=== PATIENT | male | born 1980 | race Asian ===

== ENCOUNTER 2017-09-05 14:05 | Outpatient (CLI) | payer OTHER | END 2017-09-05 19:52 | disposition home or self-care (01) | LOC: SUS 14:05 | DX: M79.661 Pain in right lower leg (principal) | CPT/HCPCS: 93922; 93971 ==

== ENCOUNTER 2021-01-14 21:53 | Inpatient (IN) | payer BC, OTHER ==
[~2021-01-14] VITALS: Ht 180.3 cm; Wt 96.6 kg
[2021-01-14 21:53] VITALS: BP_SYST 146
[2021-01-14] MEDS ORDERED: NACL 0.9% 1,000 ML IV ONE (22:30)
[2021-01-14] MEDS ORDERED: PIPERACILLIN/TAZO 3.375 GM in NS 50 ML IV ONE (22:30)
[2021-01-14 22:59] LABS: BASOPHILS # (AUTO) 0.2 K/uL (0.0-0.2); BASOPHILS % (AUTO) 0.8 % (0.0-2.0); EOSINOPHILS # (AUTO) 0.2 K/uL (0.0-0.4); EOSINOPHILS % (AUTO) 1.1 % (0.0-4.0); HEMATOCRIT 36.1 % (36-54); HEMOGLOBIN 13.7 g/dL (14.0-18.0); LYMPHOCYTES # (AUTO) 1.7 K/uL (1.0-5.5); LYMPHOCYTES % (AUTO) 7.9 % (20.5-51.5); MEAN CORPUSCULAR HEMOGLOBIN 30 pg (27-31); MEAN CORPUSCULAR HGB CONC 38 % (32-36); MEAN CORPUSCULAR VOLUME 80 fL (79.0-98.0); MONOCYTES # (AUTO) 1.2 K/uL (0.0-1.0); MONOCYTES % (AUTO) 5.6 % (1.7-9.3); NEUTROPHILS # (AUTO) 18.5 K/uL (1.8-7.7); NEUTROPHILS % (AUTO) 84.6 % (40.0-70.0); PLATELET COUNT (AUTO) 285 K/uL (130-430); RED CELL DISTRIBUTION WIDTH 13.6 % (9.0-15.0); WHITE BLOOD COUNT (AUTO) 21.8 K/uL (4.8-10.8)
[2021-01-14] MEDS ORDERED: PIPERACILLIN/TAZOBACTAM 3.375 GM/VIAL (ZOSYN) IV ONE (23:01)
[2021-01-14 23:54] LABS: CALCIUM 8.9 mg/dL (8.4-11.0); POTASSIUM 4.3 mmol/L (3.5-5.1)
[2021-01-15] LABS: ALBUMIN 3.7 g/dL (3.4-4.8); TOTAL BILIRUBIN 0.9 mg/dL (0.0-1.0)
[2021-01-15 00:01] LABS: PROTHROMBIN TIME 10.4 SECS (9.5-12.5)
[2021-01-15 00:49] LABS: BILIRUBIN,URINE NEGATIVE (NEGATIVE); BLOOD, URINE 1+ (NEGATIVE); CLARITY/URINE CLEAR (CLEAR); COLOR,URINE YELLOW (YELLOW); GLUCOSE,URINE 3+ (NEGATIVE); KETONES,URINE 3+ (NEGATIVE); LEUKOCYTE ESTERASE ,URINE NEGATIVE (NEGATIVE); NITRITE, URINE NEGATIVE (NEGATIVE); PH,URINE 6.5 (5.0-8.0); PROTEIN URINE 2+ (NEGATIVE); UROBILINOGEN,URINE 0.2 (0.2-1.0)
[2021-01-15 00:52] LABS: BACTERIA,URINE FEW /HPF (None Seen); WBC,URINE 0-3 /HPF (0-3)
[2021-01-15] MEDS ORDERED: KCL 20 mEq in D5/0.45NS 1000mL 1,000 ML IV SCH ×2 (01:30→10:30)
[2021-01-15] MEDS ORDERED: ONDANSETRON HCL 4 MG/2 ML VIAL IVP PRN (01:30)
[2021-01-15] MEDS ORDERED: MONT10TA33 PO (01:48)
[2021-01-15 02:12] VITALS: BP_SYST 145
[2021-01-15] MEDS: HYDROmorphone 1 MG/ML INJ. CARTRIDGE IVP PRN ×2 (02:36→22:33)
[2021-01-15] MEDS ORDERED: KCL 20 mEq in D5/0.45NS 1000mL 1,000 ML IV ONE (03:11)
[2021-01-15 07:53] VITALS: BP_SYST 117
[2021-01-15] MEDS: PANTOPRAZOLE SODIUM 40 MG/VIAL (PROTONIX) IVP SCH ×2 (08:28→21:57)
[2021-01-15] MEDS ORDERED: LevALBUTEROL HCL 1.25 MG/0.5 ML *CONC.* VIAL.NEB (XOPENEX CONC.) INH PRN (08:30)
[2021-01-15 08:55] VITALS: BP_SYST 117
[2021-01-15] MEDS: INSULIN REGULAR, HUMAN 100 UNITS/ML, 10 ML VIAL (humuLIN R) SUBCUT PRN ×3 (11:38→22:34)
[2021-01-15] MEDS: cefTRIAXone 1 GM in D5W 50 ML IV SCH (11:39)
[2021-01-15] MEDS: KCL 20 mEq in NS 1000 mL 1,000 ML IV SCH ×2 (11:39→22:29)
[2021-01-15 12:36] VITALS: BP_SYST 128
[2021-01-15] MEDS: LevALBUTEROL HCL 1.25 MG/0.5 ML *CONC.* VIAL.NEB (XOPENEX CONC.) INH SCH ×2 (14:10→19:30)
[2021-01-15 17:20] VITALS: BP_SYST 131
[2021-01-15 20:30] VITALS: BP_SYST 122
[2021-01-15] MEDS: ENOXAPARIN SODIUM 40 MG/0.4 ML SYRINGE SUBCUT SCH (22:05)
[2021-01-16] MEDS: LevALBUTEROL HCL 1.25 MG/0.5 ML *CONC.* VIAL.NEB (XOPENEX CONC.) INH SCH ×4 (01:00→19:30)
[2021-01-16 06:00] VITALS: BP_SYST 108; BP_SYST 133
[2021-01-16 06:22] LABS: BASOPHILS # (AUTO) 0.1 K/uL (0.0-0.2); BASOPHILS % (AUTO) 0.5 % (0.0-2.0); EOSINOPHILS # (AUTO) 0.5 K/uL (0.0-0.4); EOSINOPHILS % (AUTO) 3.1 % (0.0-4.0); HEMATOCRIT 34.7 % (36-54); HEMOGLOBIN 11.7 g/dL (14.0-18.0); LYMPHOCYTES # (AUTO) 1.5 K/uL (1.0-5.5); LYMPHOCYTES % (AUTO) 9.9 % (20.5-51.5); MEAN CORPUSCULAR HEMOGLOBIN 28 pg (27-31); MEAN CORPUSCULAR HGB CONC 34 % (32-36); MEAN CORPUSCULAR VOLUME 82 fL (79.0-98.0); MONOCYTES # (AUTO) 0.8 K/uL (0.0-1.0); MONOCYTES % (AUTO) 5.1 % (1.7-9.3); NEUTROPHILS # (AUTO) 12.3 K/uL (1.8-7.7); NEUTROPHILS % (AUTO) 81.4 % (40.0-70.0); PLATELET COUNT (AUTO) 217 K/uL (130-430); RED BLOOD CELL COUNT(AUTO) 4.21 MIL/uL (4.2-6.2); RED CELL DISTRIBUTION WIDTH 14.2 % (9.0-15.0); WHITE BLOOD COUNT (AUTO) 15.1 K/uL (4.8-10.8)
[2021-01-16] MEDS: INSULIN REGULAR, HUMAN 100 UNITS/ML, 10 ML VIAL (humuLIN R) SUBCUT PRN ×3 (06:30→17:27)
[2021-01-16 06:50] LABS: CALCIUM 8.3 mg/dL (8.4-11.0); CREATININE 1.02 mg/dL (0.55-1.30); POTASSIUM 4.2 mmol/L (3.5-5.1)
[2021-01-16 07:47] VITALS: BP_SYST 124
[2021-01-16] MEDS: PANTOPRAZOLE SODIUM 40 MG/VIAL (PROTONIX) IVP SCH ×2 (08:27→21:10)
[2021-01-16] MEDS: KCL 20 mEq in NS 1000 mL 1,000 ML IV SCH ×2 (08:27→21:11)
[2021-01-16 11:22] VITALS: BP_SYST 120
[2021-01-16] MEDS: cefTRIAXone 1 GM in D5W 50 ML IV SCH (11:30)
[2021-01-16 15:24] VITALS: BP_SYST 107
[2021-01-16 20:00] VITALS: BP_SYST 121
[2021-01-16] MEDS: ENOXAPARIN SODIUM 40 MG/0.4 ML SYRINGE SUBCUT SCH (21:14)
[2021-01-17] VITALS: BP_SYST 126
[2021-01-17] MEDS: HYDROmorphone 1 MG/ML INJ. CARTRIDGE IVP PRN (00:37)
[2021-01-17] MEDS: LevALBUTEROL HCL 1.25 MG/0.5 ML *CONC.* VIAL.NEB (XOPENEX CONC.) INH SCH ×3 (01:00→13:00)
[2021-01-17] MEDS: KCL 20 mEq in NS 1000 mL 1,000 ML IV SCH ×2 (06:20→13:30)
[2021-01-17] MEDS: INSULIN REGULAR, HUMAN 100 UNITS/ML, 10 ML VIAL (humuLIN R) SUBCUT PRN ×2 (06:25→11:38)
[2021-01-17 06:43] LABS: BASOPHILS # (AUTO) 0.1 K/uL (0.0-0.2); BASOPHILS % (AUTO) 0.8 % (0.0-2.0); EOSINOPHILS # (AUTO) 0.5 K/uL (0.0-0.4); EOSINOPHILS % (AUTO) 5.9 % (0.0-4.0); HEMATOCRIT 33.1 % (36-54); HEMOGLOBIN 11.1 g/dL (14.0-18.0); LYMPHOCYTES % (AUTO) 22.7 % (20.5-51.5); MEAN CORPUSCULAR HEMOGLOBIN 28 pg (27-31); MEAN CORPUSCULAR HGB CONC 33 % (32-36); MEAN CORPUSCULAR VOLUME 83 fL (79.0-98.0); MONOCYTES # (AUTO) 0.4 K/uL (0.0-1.0); NEUTROPHILS # (AUTO) 5.8 K/uL (1.8-7.7); NEUTROPHILS % (AUTO) 65.6 % (40.0-70.0); PLATELET COUNT (AUTO) 232 K/uL (130-430); RED BLOOD CELL COUNT(AUTO) 3.99 MIL/uL (4.2-6.2); RED CELL DISTRIBUTION WIDTH 14.2 % (9.0-15.0); WHITE BLOOD COUNT (AUTO) 8.8 K/uL (4.8-10.8)
[2021-01-17 06:52] LABS: CALCIUM 8.3 mg/dL (8.4-11.0); CREATININE 1.03 mg/dL (0.55-1.30); POTASSIUM 4.1 mmol/L (3.5-5.1)
[2021-01-17] MEDS: PANTOPRAZOLE SODIUM 40 MG/VIAL (PROTONIX) IVP SCH (08:41)
[2021-01-17 10:48] VITALS: BP_SYST 133
[2021-01-17] MEDS: cefTRIAXone 1 GM in D5W 50 ML IV SCH (11:45)
[2021-01-17 15:32] VITALS: BP_SYST 130
[2021-01-17 16:01] VITALS: BP_SYST 130
== END 2021-01-17 16:25 | disposition home or self-care (01) | DRG 440 ==
LOC: SED 21:53 → SMU 01-15 01:25
PROVIDERS: ADMIT Family Medicine; ATTEND Family Medicine
DX: K85.90 Acute pancreatitis without necrosis or infection, unspecified (principal); E78.5 Hyperlipidemia, unspecified; R73.9 Hyperglycemia, unspecified; D72.829 Elevated white blood cell count, unspecified; J45.909 Unspecified asthma, uncomplicated; Z20.822 Contact with and (suspected) exposure to COVID-19
CPT/HCPCS: 36415; 76376; 76700-TC; 80048; 80053; 80061; 81000; 82150; 82962; 83036; 83605; 83690; 83735; 85025; 85610-TC; 87040-TC; 93005; 94640; 94760; 96365; 99285; C9113; J0696; J1170; J1650; J1815; J2543; J3480; J7060; J7612

== ENCOUNTER 2022-05-28 15:48 | Inpatient (IN) | payer BC ==
[~2022-05-28] VITALS: Ht 180.3 cm; Wt 101.2 kg
[~2022-05-28 15:48] MED LIST: MONT-40 PO
[2022-05-28 15:50] VITALS: BP_SYST 119
--- NOTE | 2022-05-28 15:55 | NUR ---
BROUGHT BACK TO BED #6 VIA WHEELCHAIR AND PLACED IN BED, REPORT GIVEN TO ALYSSA
[2022-05-28] MEDS ORDERED: ONDANSETRON 4 MG ODT TAB PO ONE (16:00)
[2022-05-28] MEDS ORDERED: KETOROLAC TROMETHAMINE 60 MG/2 ML VIAL IM ONE (16:00)
--- NOTE | 2022-05-28 16:22 | NUR ---
PT WAS ADMITED WITH TORADOL AND ZOFRAN FOR ABDOMINAL PAIN WITH N/V.
--- NOTE | 2022-05-28 16:25 | NUR ---
TAKEN TO RADIOLOGY VIA JANUARY
--- NOTE | 2022-05-28 16:31 | NUR ---
URINE COLLECTED AND SENT TO LAB.
[2022-05-28 16:43] LABS: BILIRUBIN,URINE NEGATIVE (NEGATIVE); CLARITY/URINE CLEAR (CLEAR); COLOR,URINE YELLOW (YELLOW); GLUCOSE,URINE 3+ (NEGATIVE); KETONES,URINE 2+ (NEGATIVE); LEUKOCYTE ESTERASE ,URINE NEGATIVE (NEGATIVE); NITRITE, URINE NEGATIVE (NEGATIVE); PROTEIN URINE 1+ (NEGATIVE); UROBILINOGEN,URINE 0.2 (0.2-1.0)
[2022-05-28 17:04] LABS: BLOOD, URINE TRACE (NEGATIVE)
[2022-05-28 17:04] LABS: BASOPHILS # (AUTO) 0.1 K/uL (0.0-0.2); BASOPHILS % (AUTO) 0.5 % (0.0-2.0); EOSINOPHILS # (AUTO) 0.1 K/uL (0.0-0.4); EOSINOPHILS % (AUTO) 0.8 % (0.0-4.0); HEMOGLOBIN 14.4 g/dL (14.0-18.0); LYMPHOCYTES # (AUTO) 1.2 K/uL (1.0-5.5); LYMPHOCYTES % (AUTO) 8.4 % (20.5-51.5); MEAN CORPUSCULAR HEMOGLOBIN 27 pg (27-31); MEAN CORPUSCULAR HGB CONC 34 % (32-36); MEAN CORPUSCULAR VOLUME 81 fL (79.0-98.0); MONOCYTES # (AUTO) 0.3 K/uL (0.0-1.0); MONOCYTES % (AUTO) 2.1 % (1.7-9.3); NEUTROPHILS # (AUTO) 12.4 K/uL (1.8-7.7); NEUTROPHILS % (AUTO) 88.2 % (40.0-70.0); PLATELET COUNT (AUTO) 360 K/uL (130-430); RED BLOOD CELL COUNT(AUTO) 5.33 MIL/uL (4.2-6.2); RED CELL DISTRIBUTION WIDTH 14.8 % (9.0-15.0); WHITE BLOOD COUNT (AUTO) 14.1 K/uL (4.8-10.8)
[2022-05-28 17:34] LABS: BACTERIA,URINE None Seen /HPF (None Seen); WBC,URINE 0-3 /HPF (0-3)
[2022-05-28 17:35] LABS: MUCUS,URINE None Seen /LPF (None Seen)
[2022-05-28 17:51] LABS: ANION GAP 13 (5-15); CHLORIDE 93 mmol/L (98-107); GLUCOSE 483 mg/dL (70-99); POTASSIUM 4.2 mmol/L (3.5-5.1)
[2022-05-28 18:12] LABS: UREA NITROGEN, BLOOD 17 mg/dL (8-21)
[2022-05-28 18:13] LABS: CREATININE 1.45 mg/dL (0.55-1.30); GFR AFRICAN AMERICAN 68 mL/min (>90); TOTAL BILIRUBIN 1.1 mg/dL (0.0-1.0)
[2022-05-28 18:14] LABS: ALANINE AMINOTRANSFERASE 56 U/L (12-78); ALBUMIN 3.5 g/dL (3.4-4.8); ASPARTATE AMINOTRANSFERASE 62 U/L (10-37); C-REACTIVE PROTEIN QUANT < 0.2 mg/dL (0-0.5)
[2022-05-28 18:16] LABS: CALCIUM 6.9 mg/dL (8.4-11.0); LIPASE 4721 U/L (73-393)
[2022-05-28 18:17] LABS: LACTATE DEHYDROGENASE 431 U/L (85-227)
--- NOTE | 2022-05-28 18:27 | NUR ---
Admit bed requested Patient will be admitted to care of . Admitted to TELEMETRY unit. Diagnosis: ACUTE PACREATITIS Inpatient (Yes) Observation ( No) Orientation concerns or request close to nursing station ( No) Covid Status NEGATIVE On vent or bipap NO Isolation requirements STANDARD Needs a sitter NO From Home (Yes ) Requires Dialysis (No) Med Rec Completed (Yes)
[2022-05-28] MEDS ORDERED: NACL 0.9% 1,000 ML IV ONE (18:30)
[2022-05-28] MEDS ORDERED: INSULIN REGULAR, HUMAN 10 UNITS/0.1 ML, 3 ML VIAL IVP ONE (18:30)
[2022-05-28] MEDS ORDERED: NACL 0.9% 2,000 ML IV ONE (18:30)
[2022-05-28 18:38] LABS: ACETONE, SERUM TRACE (NEGATIVE)
[2022-05-28] MEDS ORDERED: MORPHINE 2 MG/ML INJ. SYRINGE IVP ONE (18:45)
[2022-05-28 19:16] LABS: AMYLASE 697 U/L (0-100)
[2022-05-28] MEDS ORDERED: DEXTROSE 50% JECT 50 ML DISP.SYRIN IVP PRN (19:30)
[2022-05-28] MEDS ORDERED: NALOXONE HCL 0.4 MG/ML AMP (NARCAN) IVP PRN ×2 (19:30)
[2022-05-28] MEDS ORDERED: NACL 0.9% 1,000 ML IV SCH (19:30)
[2022-05-28] MEDS ORDERED: MORPHINE 4 MG INJ. 4 MG/ML VIAL IVP PRN (19:45)
[2022-05-28] MEDS ORDERED: cefTRIAXone 1 GM VIAL ONE (20:54)
[2022-05-28] MEDS: cefTRIAXone 1 GM in D5W 50 ML IV SCH (20:57)
[2022-05-28] MEDS ORDERED: cefTRIAXone 1 GM IVPB PREMIX 50 ML IV ONE (20:59)
[2022-05-28 21:25] LABS: CHOLESTEROL 204 mg/dL (<200); TRIGLYCERIDES 1935 mg/dL (30-150)
[2022-05-28 21:26] LABS: HDL CHOLESTEROL 51 mg/dL (>45); LDL CHOLESTEROL 45 mg/dL (<100)
--- NOTE | 2022-05-28 21:30 | NUR ---
pt.received via the er-dept.pt.presents admit dx;pancreatitis.pt. c/o pain,absent nausea.pt.received w iv fluids/abx;rocephin infusing.v/s assessed values wnl.pt.presents general status stable.respiratory status stable;un-labored@room air.call light/ telephone placed w/in access of the pt. Addendum: 05/29/22 at 0149 by Jorje Ford RN account receivable associate placement verification per protocol.
[2022-05-28 21:45] VITALS: BP_SYST 110
[2022-05-28] MEDS: HYDROmorphone 1 MG/ML INJ. CARTRIDGE IVP PRN (21:57)
--- NOTE | 2022-05-28 22:20 | NUR ---
CONSULTATION CALLED FOR DR. OAKLEY FOR CONSULT OF ACUTE PANCREATITIS ORDER BY DR. CARTER SPOKE WITH DEEPTI
--- NOTE | 2022-05-28 22:49 | NUR ---
PAGED DOCTOR EMMA
--- NOTE | 2022-05-28 23:10 | NUR ---
Dr. Browne paged, new orders provided Dr Browne was paged and notified about pt's low calcium 6.9, pt's request for sleep aid, and clarification of a morphine PRN order. -Tums 1000 mg PO QID was ordered -Restoril 30 mg PO QHS PRN ordered for sleep -Morphine order cancelled Dr. Browne returned call at [phone]
--- NOTE | 2022-05-28 23:10 | NUR ---
ADMIT NOTE Patient arrived to [facility] unit bed 118A at 2130 from ER with a diagnosis of RECCURENT PANCREATITIS. Admission process initiated by ROD Recinos and ROD madison provide care remainder of shift. Patient oriented to pain management, safety and call light-teach back done. Patient has been moved to bed 124B
[2022-05-28] MEDS ORDERED: CALCIUM CARBONATE 500 MG/ TAB.CHEW PO SCH (23:30)
[2022-05-29] MEDS: HYDROmorphone 1 MG/ML INJ. CARTRIDGE IVP PRN ×5 (04:29→23:27)
[2022-05-29] MEDS: INSULIN REGULAR, HUMAN 100 UNITS/ML, 3 ML VIAL (humuLIN R) SUBCUT PRN ×3 (05:02→21:58)
[2022-05-29] MEDS: CALCIUM CARBONATE 500 MG/ TAB.CHEW PO SCH ×5 (05:19→21:50)
[2022-05-29] MEDS: ACETAMINOPHEN 325 MG TABLET PO PRN ×2 (05:42→17:06)
--- NOTE | 2022-05-29 07:15 | NUR ---
receive the patient form the car shifter rn in a stable condition with admitting diagnosis aox4 .no sign and symptoms of respiratory distress . no complain of pain at this time . will continue to monitor .
[2022-05-29 07:49] LABS: ALBUMIN 2.6 g/dL (3.4-4.8); CREATININE 1.06 mg/dL (0.55-1.30); PHOSPHORUS 2.1 mg/dL (2.7-4.5); POTASSIUM 4.6 mmol/L (3.5-5.1); TOTAL BILIRUBIN 0.9 mg/dL (0.0-1.0)
[2022-05-29 07:59] LABS: BASOPHILS # (AUTO) 0.1 K/uL (0.0-0.2); BASOPHILS % (AUTO) 0.6 % (0.0-2.0); EOSINOPHILS # (AUTO) 0.6 K/uL (0.0-0.4); EOSINOPHILS % (AUTO) 4.6 % (0.0-4.0); HEMATOCRIT 36.3 % (36-54); LYMPHOCYTES # (AUTO) 1.5 K/uL (1.0-5.5); LYMPHOCYTES % (AUTO) 11.8 % (20.5-51.5); MEAN CORPUSCULAR HEMOGLOBIN 29 pg (27-31); MEAN CORPUSCULAR HGB CONC 36 % (32-36); MEAN CORPUSCULAR VOLUME 80 fL (79.0-98.0); MONOCYTES # (AUTO) 0.4 K/uL (0.0-1.0); MONOCYTES % (AUTO) 2.8 % (1.7-9.3); NEUTROPHILS # (AUTO) 10.3 K/uL (1.8-7.7); NEUTROPHILS % (AUTO) 80.2 % (40.0-70.0); PLATELET COUNT (AUTO) 279 K/uL (130-430); RED BLOOD CELL COUNT(AUTO) 4.53 MIL/uL (4.2-6.2); RED CELL DISTRIBUTION WIDTH 14.7 % (9.0-15.0); WHITE BLOOD COUNT (AUTO) 12.9 K/uL (4.8-10.8)
[2022-05-29 08:53] LABS: CALCIUM 5.4 mg/dL (8.4-11.0)
--- NOTE | 2022-05-29 11:00 | NUR ---
patient was made NPO for ultrasound of the abdomen/pelvis . patient tolerated the procedure
[2022-05-29] MEDS: LR 1,000 ML IV SCH ×3 (14:58→22:07)
[2022-05-29] MEDS: cefTRIAXone 1 GM in D5W 50 ML IV SCH (17:03)
[2022-05-29] MEDS ORDERED: NAPH,MB-DB/K PH,MBDB 250 MG TAB PO ONE (18:30)
--- NOTE | 2022-05-29 18:37 | NUR ---
will endorese to operation shift supervisor rn for continuity of care
[2022-05-29] MEDS ORDERED: FENOFIBRATE 160 MG TABLET PO ONE (19:00)
[2022-05-29 20:00] VITALS: BP_SYST 112
[2022-05-29] MEDS ORDERED: CALCIUM CHLORIDE 1 GM in NS 100 ML IV ONE (20:00)
[2022-05-29] MEDS: NAPH,MB-DB/K PH,MBDB 250 MG TAB PO SCH (21:50)
[2022-05-30] MEDS ORDERED: CALCIUM CHLORIDE 1 GM/10ML VIAL (13.6 mEq Ca++/VIAL) ONE (01:34)
[2022-05-30] MEDS: HYDROmorphone 1 MG/ML INJ. CARTRIDGE IVP PRN ×4 (05:01→17:46)
[2022-05-30] MEDS: LR 1,000 ML IV SCH ×4 (05:01→20:06)
[2022-05-30] MEDS: INSULIN REGULAR, HUMAN 100 UNITS/ML, 3 ML VIAL (humuLIN R) SUBCUT PRN ×4 (05:21→20:36)
[2022-05-30 06:41] LABS: BASOPHILS % (AUTO) 0.4 % (0.0-2.0); EOSINOPHILS # (AUTO) 0.6 K/uL (0.0-0.4); EOSINOPHILS % (AUTO) 5.3 % (0.0-4.0); HEMATOCRIT 33.1 % (36-54); HEMOGLOBIN 11.3 g/dL (14.0-18.0); LYMPHOCYTES # (AUTO) 0.9 K/uL (1.0-5.5); LYMPHOCYTES % (AUTO) 8.5 % (20.5-51.5); MEAN CORPUSCULAR HEMOGLOBIN 27 pg (27-31); MEAN CORPUSCULAR HGB CONC 34 % (32-36); MEAN CORPUSCULAR VOLUME 80 fL (79.0-98.0); MONOCYTES # (AUTO) 0.3 K/uL (0.0-1.0); MONOCYTES % (AUTO) 3.1 % (1.7-9.3); NEUTROPHILS # (AUTO) 9.2 K/uL (1.8-7.7); NEUTROPHILS % (AUTO) 82.7 % (40.0-70.0); PLATELET COUNT (AUTO) 191 K/uL (130-430); RED BLOOD CELL COUNT(AUTO) 4.15 MIL/uL (4.2-6.2); RED CELL DISTRIBUTION WIDTH 14.8 % (9.0-15.0); WHITE BLOOD COUNT (AUTO) 11.1 K/uL (4.8-10.8)
[2022-05-30 07:00] LABS: ALBUMIN 2.1 g/dL (3.4-4.8); CREATININE 1.18 mg/dL (0.55-1.30); POTASSIUM 3.6 mmol/L (3.5-5.1); TOTAL BILIRUBIN 0.6 mg/dL (0.0-1.0)
--- NOTE | 2022-05-30 07:23 | NUR ---
receive the patient from the police shift commander rn in a stable condition with admitting diagnosis of pancreatitis . no complain of pain at this time . no sign and symptoms of respiratory distress . will continue to monitor
[2022-05-30 08:01] LABS: CALCIUM 6.7 mg/dL (8.4-11.0)
[2022-05-30] MEDS: NAPH,MB-DB/K PH,MBDB 250 MG TAB PO SCH ×4 (09:49→20:12)
[2022-05-30] MEDS: CALCIUM CARBONATE 500 MG/ TAB.CHEW PO SCH ×4 (09:49→20:12)
[2022-05-30] MEDS: OMEGA-3/DHA/EPA/FISH OIL 1 GM CAPSULE PO SCH (09:49)
[2022-05-30] MEDS: FENOFIBRATE 160 MG TABLET PO SCH (09:49)
--- NOTE | 2022-05-30 15:40 | NUR ---
the manager of merchandising made rounds with patient . order lantus for the patient . noted and carried out
[2022-05-30 16:13] VITALS: BP_SYST 127
[2022-05-30] MEDS: cefTRIAXone 1 GM in D5W 50 ML IV SCH (17:29)
[2022-05-30] MEDS: ACETAMINOPHEN 325 MG TABLET PO PRN (17:35)
--- NOTE | 2022-05-30 19:24 | NUR ---
leonardo to lance rn for continuity of care .
--- NOTE | 2022-05-30 19:50 | NUR ---
made patient teaching regarding how to check the blood sugar with use of glucometer. return demo was done
[2022-05-30 20:00] VITALS: BP_SYST 129
--- NOTE | 2022-05-30 20:00 | NUR ---
Education Diabetes teaching medication , compliant with proper diet , regular check up , do's and dont, verbalized understanding.
[2022-05-30] MEDS: INSULIN GLARGINE 100 UNITS/ML, 10 ML VIAL SUBCUT SCH (20:37)
--- NOTE | 2022-05-30 21:31 | NUR ---
Endorsed patient to Estella the registry/RN for continuity of care.
[2022-05-30] MEDS: DIPHENHYDRAMINE INJ 50 MG/ML VIAL IVP PRN (21:53)
[2022-05-31] VITALS: BP_SYST 134
[2022-05-31] MEDS: LR 1,000 ML IV SCH ×5 (01:02→20:16)
[2022-05-31] MEDS: HYDROmorphone 1 MG/ML INJ. CARTRIDGE IVP PRN ×5 (01:58→20:01)
[2022-05-31] MEDS: ACETAMINOPHEN 325 MG TABLET PO PRN (05:06)
[2022-05-31 07:23] LABS: BASOPHILS % (AUTO) 0.4 % (0.0-2.0); EOSINOPHILS # (AUTO) 0.7 K/uL (0.0-0.4); HEMATOCRIT 29.2 % (36-54); HEMOGLOBIN 10.1 g/dL (14.0-18.0); LYMPHOCYTES # (AUTO) 1.1 K/uL (1.0-5.5); LYMPHOCYTES % (AUTO) 11.3 % (20.5-51.5); MEAN CORPUSCULAR HEMOGLOBIN 28 pg (27-31); MEAN CORPUSCULAR HGB CONC 35 % (32-36); MEAN CORPUSCULAR VOLUME 80 fL (79.0-98.0); MONOCYTES # (AUTO) 0.4 K/uL (0.0-1.0); MONOCYTES % (AUTO) 4.5 % (1.7-9.3); NEUTROPHILS # (AUTO) 7.4 K/uL (1.8-7.7); NEUTROPHILS % (AUTO) 76.8 % (40.0-70.0); PLATELET COUNT (AUTO) 230 K/uL (130-430); RED BLOOD CELL COUNT(AUTO) 3.65 MIL/uL (4.2-6.2); RED CELL DISTRIBUTION WIDTH 14.7 % (9.0-15.0); WHITE BLOOD COUNT (AUTO) 9.7 K/uL (4.8-10.8)
--- NOTE | 2022-05-31 07:24 | NUR ---
receive the patient from the rn shift mgr rn in a stable condition with admitting diagnosis of pancreatitis , aox4 , no complain of pain , no sign and symptoms respiratory distress . will continue to monitor
[2022-05-31 08:05] LABS: ALBUMIN 2.1 g/dL (3.4-4.8); CALCIUM 8.1 mg/dL (8.4-11.0); CREATININE 1.24 mg/dL (0.55-1.30); PHOSPHORUS 2.2 mg/dL (2.7-4.5); POTASSIUM 3.1 mmol/L (3.5-5.1); TOTAL BILIRUBIN 0.5 mg/dL (0.0-1.0)
[2022-05-31] MEDS: FENOFIBRATE 160 MG TABLET PO SCH (08:42)
[2022-05-31] MEDS: NAPH,MB-DB/K PH,MBDB 250 MG TAB PO SCH ×4 (08:42→20:16)
[2022-05-31] MEDS: CALCIUM CARBONATE 500 MG/ TAB.CHEW PO SCH ×3 (08:43→17:33)
[2022-05-31] MEDS: OMEGA-3/DHA/EPA/FISH OIL 1 GM CAPSULE PO SCH (08:43)
[2022-05-31] MEDS: INSULIN REGULAR, HUMAN 100 UNITS/ML, 3 ML VIAL (humuLIN R) SUBCUT PRN ×3 (11:34→20:25)
--- NOTE | 2022-05-31 16:40 | NUR ---
md albarran made some rounds . repalce the potassium . made some patient teaching re: blood sugar monitoring using the glucometer , insulin administration .
[2022-05-31] MEDS ORDERED: POTASSIUM CHLORIDE 20 MEQ TAB.PRT.SR PO ONE (16:45)
[2022-05-31] MEDS: cefTRIAXone 1 GM in D5W 50 ML IV SCH (17:37)
[2022-05-31 19:00] VITALS: BP_SYST 132
--- NOTE | 2022-05-31 19:20 | NUR ---
will endorse to geek squad manager rn for continuity of care
[2022-05-31 20:00] VITALS: BP_SYST 132
[2022-05-31] MEDS: POTASSIUM CHLORIDE 20 MEQ TAB.PRT.SR PO SCH (20:18)
[2022-05-31] MEDS: INSULIN GLARGINE 100 UNITS/ML, 10 ML VIAL SUBCUT SCH (20:27)
[2022-05-31] MEDS: DIPHENHYDRAMINE INJ 50 MG/ML VIAL IVP PRN (20:28)
[2022-05-31] MEDS: CALCIUM 500 MG/TAB PO SCH (20:32)
[2022-05-31] MEDS ORDERED: CALCIUM CITRATE 200 MG TABLET PO SCH (21:00)
[2022-06-01] VITALS (7 sets, daily range): BP systolic 130–173
[2022-06-01] MEDS: HYDROmorphone 1 MG/ML INJ. CARTRIDGE IVP PRN ×5 (01:35→19:34)
[2022-06-01] MEDS: LR 1,000 ML IV SCH ×4 (01:35→22:13)
[2022-06-01] MEDS: ONDANSETRON HCL 4 MG/2 ML VIAL IVP PRN ×3 (01:39→19:33)
[2022-06-01 06:40] LABS: BASOPHILS % (AUTO) 0.4 % (0.0-2.0); EOSINOPHILS # (AUTO) 0.7 K/uL (0.0-0.4); HEMATOCRIT 27.7 % (36-54); HEMOGLOBIN 9.6 g/dL (14.0-18.0); LYMPHOCYTES # (AUTO) 1.5 K/uL (1.0-5.5); LYMPHOCYTES % (AUTO) 14.9 % (20.5-51.5); MEAN CORPUSCULAR HEMOGLOBIN 28 pg (27-31); MEAN CORPUSCULAR HGB CONC 35 % (32-36); MEAN CORPUSCULAR VOLUME 80 fL (79.0-98.0); MONOCYTES # (AUTO) 0.7 K/uL (0.0-1.0); MONOCYTES % (AUTO) 6.7 % (1.7-9.3); NEUTROPHILS # (AUTO) 7.2 K/uL (1.8-7.7); PLATELET COUNT (AUTO) 247 K/uL (130-430); RED BLOOD CELL COUNT(AUTO) 3.46 MIL/uL (4.2-6.2); RED CELL DISTRIBUTION WIDTH 14.3 % (9.0-15.0); WHITE BLOOD COUNT (AUTO) 10.1 K/uL (4.8-10.8)
[2022-06-01 07:14] LABS: ALBUMIN 2.2 g/dL (3.4-4.8); CALCIUM 8.7 mg/dL (8.4-11.0); CREATININE 1.05 mg/dL (0.55-1.30); PHOSPHORUS 4.2 mg/dL (2.7-4.5); POTASSIUM 3.4 mmol/L (3.5-5.1); TOTAL BILIRUBIN 0.6 mg/dL (0.0-1.0)
[2022-06-01 07:29] LABS: TOTAL IRON BIND. CAPACITY 110 ug/dL (250-450)
[2022-06-01] MEDS: NAPH,MB-DB/K PH,MBDB 250 MG TAB PO SCH ×4 (08:51→21:27)
[2022-06-01] MEDS: CALCIUM 500 MG/TAB PO SCH ×2 (08:52→21:25)
[2022-06-01] MEDS: POTASSIUM CHLORIDE 20 MEQ TAB.PRT.SR PO SCH ×2 (08:52→21:27)
[2022-06-01] MEDS: OMEGA-3/DHA/EPA/FISH OIL 1 GM CAPSULE PO SCH (08:52)
[2022-06-01] MEDS: FENOFIBRATE 160 MG TABLET PO SCH (09:05)
[2022-06-01] MEDS: ACETAMINOPHEN 325 MG TABLET PO PRN ×2 (10:24→17:01)
[2022-06-01] MEDS ORDERED: POTASSIUM CHLORIDE 20 MEQ TAB.PRT.SR PO ONE (10:45)
--- NOTE | 2022-06-01 11:54 | NUR ---
Clarified order with Dr. Browne and reported current potassium values.
[2022-06-01] MEDS: INSULIN REGULAR, HUMAN 100 UNITS/ML, 3 ML VIAL (humuLIN R) SUBCUT PRN (11:58)
[2022-06-01] MEDS: cefTRIAXone 1 GM in D5W 50 ML IV SCH (17:02)
--- NOTE | 2022-06-01 20:20 | NUR ---
SPOUSE AT BEDSIDE. AWAKE AND ALERT PATIENT WANTS TO DISCHARGE TO HOME TO CONTINUE EXERCISE AND DIABETIC MANAGEMENT. SAYS HE IS "FEELING PAIN 7/10 LIKE IT IS EXPLODING" IN RIGHT SIDE OF ABDOMEN.
[2022-06-01] MEDS: INSULIN GLARGINE 100 UNITS/ML, 10 ML VIAL SUBCUT SCH (21:27)
[2022-06-01] MEDS: TEMAZEPAM 7.5 MG CAPSULE PO PRN (22:02)
[2022-06-01] MEDS: HYDROcodone/ACETAMIN 10-325 MG TAB PO PRN (22:03)
--- NOTE | 2022-06-01 23:30 | NUR ---
PATIENT WITH EVEN UNLABORED RESPIRATIONS ON ROOM AIR. REQUEST FOR SLEEPING MEDICATION AND PAIN MEDICATION PROVIDES RELIEF PER PATIENT REPORT. BED TO LOW POSITION, CALL LIGHT WITHIN PATIENT REACH. ICE CHIPS GIVEN PER REQUEST.
[2022-06-02] VITALS: BP_SYST 145
[2022-06-02] MEDS: HYDROmorphone 1 MG/ML INJ. CARTRIDGE IVP PRN ×2 (02:34→07:09)
--- NOTE | 2022-06-02 03:30 | NUR ---
PATIENT NOTES IMPROVEMENT IN PAIN 6/10 AFTER GIVEN NEEDED DILAUDED FOR PAIN. HE IS AWAKE AND WATCHING TELEVISION.
[2022-06-02 07:35] LABS: BASOPHILS # (AUTO) 0.1 K/uL (0.0-0.2); BASOPHILS % (AUTO) 0.5 % (0.0-2.0); EOSINOPHILS # (AUTO) 0.9 K/uL (0.0-0.4); HEMATOCRIT 28.8 % (36-54); HEMOGLOBIN 10.1 g/dL (14.0-18.0); LYMPHOCYTES # (AUTO) 1.4 K/uL (1.0-5.5); LYMPHOCYTES % (AUTO) 14.5 % (20.5-51.5); MEAN CORPUSCULAR HEMOGLOBIN 28 pg (27-31); MEAN CORPUSCULAR HGB CONC 35 % (32-36); MEAN CORPUSCULAR VOLUME 80 fL (79.0-98.0); MONOCYTES # (AUTO) 0.7 K/uL (0.0-1.0); MONOCYTES % (AUTO) 6.8 % (1.7-9.3); NEUTROPHILS # (AUTO) 6.8 K/uL (1.8-7.7); NEUTROPHILS % (AUTO) 69.2 % (40.0-70.0); PLATELET COUNT (AUTO) 295 K/uL (130-430); RED BLOOD CELL COUNT(AUTO) 3.59 MIL/uL (4.2-6.2); RED CELL DISTRIBUTION WIDTH 14.6 % (9.0-15.0); WHITE BLOOD COUNT (AUTO) 9.8 K/uL (4.8-10.8)
[2022-06-02 08:33] LABS: ALBUMIN 2.4 g/dL (3.4-4.8); CALCIUM 8.8 mg/dL (8.4-11.0); CREATININE 1.08 mg/dL (0.55-1.30); PHOSPHORUS 4.8 mg/dL (2.7-4.5); POTASSIUM 3.8 mmol/L (3.5-5.1); TOTAL BILIRUBIN 0.5 mg/dL (0.0-1.0)
[2022-06-02] MEDS: NAPH,MB-DB/K PH,MBDB 250 MG TAB PO SCH (09:48)
[2022-06-02] MEDS: SIMETHICONE 80 MG TAB.CHEW PO SCH ×3 (09:48→20:52)
[2022-06-02] MEDS: HYDROcodone/ACETAMIN 10-325 MG TAB PO PRN (09:48)
[2022-06-02] MEDS: OMEGA-3/DHA/EPA/FISH OIL 1 GM CAPSULE PO SCH (09:48)
[2022-06-02] MEDS: POTASSIUM CHLORIDE 20 MEQ TAB.PRT.SR PO SCH ×2 (09:49→20:53)
[2022-06-02] MEDS: LR 1,000 ML IV SCH ×2 (09:51→20:24)
[2022-06-02] MEDS: CALCIUM 500 MG/TAB PO SCH (10:08)
[2022-06-02] MEDS: FENOFIBRATE 160 MG TABLET PO SCH (10:08)
[2022-06-02 12:00] VITALS: BP_SYST 128
[2022-06-02] MEDS ORDERED: HYDROmorphone 1 MG/ML INJ. CARTRIDGE IVP PRN ×2 (14:00→21:15)
[2022-06-02 16:00] VITALS: BP_SYST 125
[2022-06-02] MEDS: ONDANSETRON HCL 4 MG/2 ML VIAL IVP PRN (18:37)
[2022-06-02] MEDS: INSULIN REGULAR, HUMAN 100 UNITS/ML, 3 ML VIAL (humuLIN R) SUBCUT PRN (18:38)
[2022-06-02] MEDS: ATORVASTATIN 20 MG TABLET PO SCH (20:26)
[2022-06-02] MEDS: cefTRIAXone 1 GM in D5W 50 ML IV SCH (20:29)
[2022-06-02 20:41] VITALS: BP_SYST 113
[2022-06-02] MEDS: ACETAMINOPHEN 325 MG TABLET PO PRN (20:53)
[2022-06-02] MEDS: CHOLECALCIFEROL (VITAMIN D3) 2,000 UNIT TABLET PO SCH (20:53)
[2022-06-02] MEDS ORDERED: NALOXONE HCL 0.4 MG/ML AMP (NARCAN) IVP PRN (21:15)
[2022-06-02] MEDS ORDERED: ACETAMINOPHEN 325 MG TABLET PO PRN (21:15)
[2022-06-02] MEDS ORDERED: METOCLOPRAMIDE HCL 10 MG TABLET PO ONE (21:15)
[2022-06-02] MEDS: TEMAZEPAM 7.5 MG CAPSULE PO PRN (22:12)
[2022-06-02] MEDS: INSULIN GLARGINE 100 UNITS/ML, 10 ML VIAL SUBCUT SCH (22:18)
[2022-06-02 22:38] VITALS: BP_SYST 134
[2022-06-03] MEDS: HYDROmorphone 1 MG/ML INJ. CARTRIDGE IVP PRN ×5 (02:53→23:29)
[2022-06-03 06:19] LABS: BASOPHILS # (AUTO) 0.1 K/uL (0.0-0.2); BASOPHILS % (AUTO) 0.9 % (0.0-2.0); EOSINOPHILS # (AUTO) 0.7 K/uL (0.0-0.4); EOSINOPHILS % (AUTO) 8.7 % (0.0-4.0); HEMATOCRIT 27.9 % (36-54); HEMOGLOBIN 9.6 g/dL (14.0-18.0); LYMPHOCYTES # (AUTO) 1.6 K/uL (1.0-5.5); LYMPHOCYTES % (AUTO) 19.8 % (20.5-51.5); MEAN CORPUSCULAR HEMOGLOBIN 27 pg (27-31); MEAN CORPUSCULAR HGB CONC 35 % (32-36); MEAN CORPUSCULAR VOLUME 80 fL (79.0-98.0); MONOCYTES # (AUTO) 0.6 K/uL (0.0-1.0); MONOCYTES % (AUTO) 7.9 % (1.7-9.3); NEUTROPHILS # (AUTO) 5.1 K/uL (1.8-7.7); NEUTROPHILS % (AUTO) 62.7 % (40.0-70.0); PLATELET COUNT (AUTO) 314 K/uL (130-430); RED BLOOD CELL COUNT(AUTO) 3.51 MIL/uL (4.2-6.2); RED CELL DISTRIBUTION WIDTH 14.2 % (9.0-15.0); WHITE BLOOD COUNT (AUTO) 8.1 K/uL (4.8-10.8)
[2022-06-03] MEDS: LR 1,000 ML IV SCH ×2 (06:44→14:44)
[2022-06-03] MEDS: PIPERACILLIN/TAZO 3.375/DEX-IS 50 ML IV SCH ×3 (06:59→17:06)
[2022-06-03 07:17] LABS: ALBUMIN 2.3 g/dL (3.4-4.8); CALCIUM 8.6 mg/dL (8.4-11.0); CREATININE 1.04 mg/dL (0.55-1.30); POTASSIUM 3.7 mmol/L (3.5-5.1); TOTAL BILIRUBIN 0.3 mg/dL (0.0-1.0)
[2022-06-03 08:00] VITALS: BP_SYST 144
[2022-06-03] MEDS: CHOLECALCIFEROL (VITAMIN D3) 2,000 UNIT TABLET PO SCH ×2 (09:05→23:28)
[2022-06-03] MEDS: OMEGA-3/DHA/EPA/FISH OIL 1 GM CAPSULE PO SCH (09:05)
[2022-06-03] MEDS: SIMETHICONE 80 MG TAB.CHEW PO SCH ×3 (09:05→23:28)
[2022-06-03] MEDS: METOCLOPRAMIDE HCL 10 MG TABLET PO SCH ×4 (09:06→23:28)
[2022-06-03] MEDS: POTASSIUM CHLORIDE 20 MEQ TAB.PRT.SR PO SCH ×2 (09:06→23:28)
[2022-06-03] MEDS: FENOFIBRATE 160 MG TABLET PO SCH (10:33)
[2022-06-03] MEDS: INSULIN REGULAR, HUMAN 100 UNITS/ML, 3 ML VIAL (humuLIN R) SUBCUT PRN ×2 (10:58→23:49)
[2022-06-03 12:00] VITALS: BP_SYST 136
[2022-06-03] MEDS ORDERED: DOCUSATE SODIUM 250 MG CAPSULE PO ONE (13:00)
[2022-06-03] MEDS ORDERED: FAMOTIDINE PF 20 MG/2 ML VIAL IVP ONE (13:00)
[2022-06-03] MEDS ORDERED: MULTIVITS,CA,MINERALS/IRON/FA 1 TABLET PO ONE (13:15)
[2022-06-03 16:00] VITALS: BP_SYST 129
[2022-06-03 20:00] VITALS: BP_SYST 147
--- NOTE | 2022-06-03 20:00 | NUR ---
OPENING Patient resting in bed, unlabored breathing on room air. Patient states he has been having abdominal pain but that the pain medication helps. Temp 99.3. Ambulatory with steady gait. Call light in reach, bed low and locked.
[2022-06-03] MEDS: DOCUSATE SODIUM 250 MG CAPSULE PO SCH (23:28)
[2022-06-03] MEDS: ATORVASTATIN 20 MG TABLET PO SCH (23:28)
[2022-06-03] MEDS: FAMOTIDINE PF 20 MG/2 ML VIAL IVP SCH (23:29)
[2022-06-03] MEDS: INSULIN GLARGINE 100 UNITS/ML, 10 ML VIAL SUBCUT SCH (23:49)
[2022-06-04] MEDS: PIPERACILLIN/TAZO 3.375/DEX-IS 50 ML IV SCH ×4 (00:18→17:08)
[2022-06-04] MEDS: LR 1,000 ML IV SCH ×2 (00:18→10:09)
[2022-06-04 00:31] VITALS: BP_SYST 141
[2022-06-04] MEDS: HYDROmorphone 1 MG/ML INJ. CARTRIDGE IVP PRN ×4 (05:17→21:09)
--- NOTE | 2022-06-04 05:41 | NUR ---
Patient ambulated to bathroom with steady gait, reported diarrhea. Dilaudid given for 8/10 pain. Denies nausea.
[2022-06-04] MEDS: METOCLOPRAMIDE HCL 10 MG TABLET PO SCH ×4 (06:49→21:08)
[2022-06-04 07:29] LABS: ALBUMIN 2.6 g/dL (3.4-4.8); CALCIUM 8.9 mg/dL (8.4-11.0); CREATININE 1.22 mg/dL (0.55-1.30); POTASSIUM 4.1 mmol/L (3.5-5.1); TOTAL BILIRUBIN 0.4 mg/dL (0.0-1.0)
--- NOTE | 2022-06-04 07:30 | NUR ---
CLOSING Patient resting in bed, unlabored breathing on room air. States abdominal pain got better after pain med but is starting to increase again. No insulin coverage this morning per sliding scale. Call light in reach, safety precautions maintained.
[2022-06-04 08:00] VITALS: BP_SYST 132
[2022-06-04] MEDS: FAMOTIDINE PF 20 MG/2 ML VIAL IVP SCH ×2 (08:31→21:08)
[2022-06-04] MEDS: OMEGA-3/DHA/EPA/FISH OIL 1 GM CAPSULE PO SCH (08:32)
[2022-06-04] MEDS: FENOFIBRATE 160 MG TABLET PO SCH (08:32)
[2022-06-04] MEDS: MULTIVITS,CA,MINERALS/IRON/FA 1 TABLET PO SCH (08:32)
[2022-06-04] MEDS: CHOLECALCIFEROL (VITAMIN D3) 2,000 UNIT TABLET PO SCH ×2 (08:33→21:08)
[2022-06-04] MEDS: SIMETHICONE 80 MG TAB.CHEW PO SCH ×3 (08:33→21:08)
[2022-06-04] MEDS: DOCUSATE SODIUM 250 MG CAPSULE PO SCH ×2 (08:34→21:00)
[2022-06-04] MEDS: POTASSIUM CHLORIDE 20 MEQ TAB.PRT.SR PO SCH ×2 (08:34→21:08)
[2022-06-04 08:51] LABS: BASOPHILS # (AUTO) 0.1 K/uL (0.0-0.2); BASOPHILS % (AUTO) 1.1 % (0.0-2.0); EOSINOPHILS # (AUTO) 0.7 K/uL (0.0-0.4); EOSINOPHILS % (AUTO) 10.2 % (0.0-4.0); HEMATOCRIT 28.3 % (36-54); HEMOGLOBIN 9.8 g/dL (14.0-18.0); LYMPHOCYTES # (AUTO) 1.2 K/uL (1.0-5.5); LYMPHOCYTES % (AUTO) 16.6 % (20.5-51.5); MEAN CORPUSCULAR HEMOGLOBIN 28 pg (27-31); MEAN CORPUSCULAR HGB CONC 35 % (32-36); MEAN CORPUSCULAR VOLUME 80 fL (79.0-98.0); MONOCYTES # (AUTO) 0.5 K/uL (0.0-1.0); MONOCYTES % (AUTO) 7.3 % (1.7-9.3); NEUTROPHILS # (AUTO) 4.5 K/uL (1.8-7.7); NEUTROPHILS % (AUTO) 64.8 % (40.0-70.0); PLATELET COUNT (AUTO) 367 K/uL (130-430); RED BLOOD CELL COUNT(AUTO) 3.53 MIL/uL (4.2-6.2); RED CELL DISTRIBUTION WIDTH 14.2 % (9.0-15.0)
[2022-06-04 12:00] VITALS: BP_SYST 126
[2022-06-04] MEDS ORDERED: ROSU10TA2 PO (14:27)
[2022-06-04] MEDS ORDERED: FENO160 PO (14:27)
[2022-06-04] MEDS ORDERED: FAMO20TA8 PO (14:27)
[2022-06-04] MEDS ORDERED: BLOO-1360 XX (14:27)
[2022-06-04] MEDS ORDERED: VITD2000 PO (14:27)
[2022-06-04] MEDS ORDERED: OMEG100036 PO (14:27)
[2022-06-04] MEDS ORDERED: METO-290 PO (14:29)
[2022-06-04] MEDS ORDERED: INSU100V7 SUBCUT (14:29)
[2022-06-04] MEDS ORDERED: INSU100V9 SUBCUT (14:29)
[2022-06-04 16:00] VITALS: BP_SYST 127
[2022-06-04 16:27] LABS: BILIRUBIN,URINE NEGATIVE (NEGATIVE); CLARITY/URINE CLEAR (CLEAR); COLOR,URINE YELLOW (YELLOW); GLUCOSE,URINE NEGATIVE (NEGATIVE); KETONES,URINE NEGATIVE (NEGATIVE); LEUKOCYTE ESTERASE ,URINE NEGATIVE (NEGATIVE); NITRITE, URINE NEGATIVE (NEGATIVE); PH,URINE 6.5 (5.0-8.0); PROTEIN URINE NEGATIVE (NEGATIVE); UROBILINOGEN,URINE 0.2 (0.2-1.0)
[2022-06-04 16:28] LABS: BLOOD, URINE TRACE (NEGATIVE)
[2022-06-04 16:39] LABS: BACTERIA,URINE None Seen /HPF (None Seen); MUCUS,URINE None Seen /LPF (None Seen); RBC,URINE 0-3 /HPF (0-3); WBC,URINE NONE SEEN /HPF (0-3)
[2022-06-04] MEDS: INSULIN REGULAR, HUMAN 100 UNITS/ML, 3 ML VIAL (humuLIN R) SUBCUT PRN (17:11)
--- NOTE | 2022-06-04 18:41 | NUR ---
Shift Summary: patient AAOX4. vitals are stable. scheduled medication and PRN medication given as documented. patient and family updated on plan of care. patient and family state they have no questions or concerns at this time. will endorse care to oncoming nurse. call light within reach. bed set to low,locked, and alarm on.
[2022-06-04 20:00] VITALS: BP_SYST 140
[2022-06-04] MEDS: ATORVASTATIN 20 MG TABLET PO SCH (21:07)
--- NOTE | 2022-06-04 22:00 | NUR ---
Patient resting in bed, unlabored breathing on room air. Reports abdominal pain that is tolerable with pain medication. Patient also reported that he had two episodes of diarrhea during the day. Ambulatory with steady gait. Tolerating diet well, denies nausea.
[2022-06-04] MEDS: TEMAZEPAM 7.5 MG CAPSULE PO PRN (22:12)
[2022-06-04] MEDS: INSULIN GLARGINE 100 UNITS/ML, 10 ML VIAL SUBCUT SCH (22:20)
[2022-06-05 00:30] VITALS: BP_SYST 132
[2022-06-05] MEDS: PIPERACILLIN/TAZO 3.375/DEX-IS 50 ML IV SCH ×4 (01:06→19:07)
[2022-06-05] MEDS: LR 1,000 ML IV SCH (01:06)
[2022-06-05] MEDS: METOCLOPRAMIDE HCL 10 MG TABLET PO SCH ×4 (06:23→21:22)
[2022-06-05] MEDS: HYDROmorphone 1 MG/ML INJ. CARTRIDGE IVP PRN ×2 (06:24→21:23)
[2022-06-05 07:20] LABS: BASOPHILS # (AUTO) 0.1 K/uL (0.0-0.2); BASOPHILS % (AUTO) 1.1 % (0.0-2.0); EOSINOPHILS # (AUTO) 0.9 K/uL (0.0-0.4); EOSINOPHILS % (AUTO) 12.3 % (0.0-4.0); HEMATOCRIT 29.9 % (36-54); HEMOGLOBIN 10.5 g/dL (14.0-18.0); LYMPHOCYTES # (AUTO) 1.4 K/uL (1.0-5.5); LYMPHOCYTES % (AUTO) 19.6 % (20.5-51.5); MEAN CORPUSCULAR HEMOGLOBIN 28 pg (27-31); MEAN CORPUSCULAR HGB CONC 35 % (32-36); MEAN CORPUSCULAR VOLUME 80 fL (79.0-98.0); MONOCYTES # (AUTO) 0.5 K/uL (0.0-1.0); MONOCYTES % (AUTO) 7.6 % (1.7-9.3); NEUTROPHILS # (AUTO) 4.3 K/uL (1.8-7.7); NEUTROPHILS % (AUTO) 59.4 % (40.0-70.0); PLATELET COUNT (AUTO) 434 K/uL (130-430); RED BLOOD CELL COUNT(AUTO) 3.74 MIL/uL (4.2-6.2); RED CELL DISTRIBUTION WIDTH 14.3 % (9.0-15.0); WHITE BLOOD COUNT (AUTO) 7.3 K/uL (4.8-10.8)
--- NOTE | 2022-06-05 07:45 | NUR ---
Closing Patient resting in bed, no distress noted. Given Dilaudid PRN twice for abdominal pain with relief. Blood sugar 121 this morning. Ambulatory with steady gait.
[2022-06-05 08:49] LABS: ALBUMIN 2.7 g/dL (3.4-4.8); CALCIUM 9.3 mg/dL (8.4-11.0); CREATININE 1.3 mg/dL (0.55-1.30); PHOSPHORUS 4.8 mg/dL (2.7-4.5); TOTAL BILIRUBIN 0.2 mg/dL (0.0-1.0)
[2022-06-05 10:50] VITALS: BP_SYST 132
[2022-06-05 12:00] VITALS: BP_SYST 130
[2022-06-05] MEDS: FAMOTIDINE PF 20 MG/2 ML VIAL IVP SCH ×2 (15:08→21:22)
[2022-06-05] MEDS: DOCUSATE SODIUM 250 MG CAPSULE PO SCH ×2 (15:09→21:22)
[2022-06-05] MEDS: FENOFIBRATE 160 MG TABLET PO SCH (15:10)
[2022-06-05] MEDS: OMEGA-3/DHA/EPA/FISH OIL 1 GM CAPSULE PO SCH (15:11)
[2022-06-05] MEDS: POTASSIUM CHLORIDE 20 MEQ TAB.PRT.SR PO SCH ×2 (15:12→21:21)
[2022-06-05] MEDS: SIMETHICONE 80 MG TAB.CHEW PO SCH ×3 (15:13→21:22)
[2022-06-05] MEDS: MULTIVITS,CA,MINERALS/IRON/FA 1 TABLET PO SCH (15:13)
[2022-06-05] MEDS: CHOLECALCIFEROL (VITAMIN D3) 2,000 UNIT TABLET PO SCH ×2 (15:14→21:22)
[2022-06-05 16:00] VITALS: BP_SYST 128
[2022-06-05 20:00] VITALS: BP_SYST 124
[2022-06-05] MEDS: ATORVASTATIN 20 MG TABLET PO SCH (21:21)
[2022-06-05] MEDS: TEMAZEPAM 7.5 MG CAPSULE PO PRN (23:11)
[2022-06-05] MEDS: INSULIN REGULAR, HUMAN 100 UNITS/ML, 3 ML VIAL (humuLIN R) SUBCUT PRN (23:14)
[2022-06-05] MEDS: INSULIN GLARGINE 100 UNITS/ML, 10 ML VIAL SUBCUT SCH (23:16)
[2022-06-06] MEDS: PIPERACILLIN/TAZO 3.375/DEX-IS 50 ML IV SCH ×3 (01:05→11:10)
[2022-06-06] MEDS: LR 1,000 ML IV SCH (01:07)
[2022-06-06 05:38] VITALS: BP_SYST 120
[2022-06-06] MEDS: HYDROmorphone 1 MG/ML INJ. CARTRIDGE IVP PRN (06:25)
[2022-06-06] MEDS: INSULIN REGULAR, HUMAN 100 UNITS/ML, 3 ML VIAL (humuLIN R) SUBCUT PRN (06:44)
[2022-06-06 07:15] LABS: BASOPHILS # (AUTO) 0.1 K/uL (0.0-0.2); BASOPHILS % (AUTO) 1.1 % (0.0-2.0); EOSINOPHILS # (AUTO) 0.9 K/uL (0.0-0.4); EOSINOPHILS % (AUTO) 10.9 % (0.0-4.0); HEMATOCRIT 31.2 % (36-54); HEMOGLOBIN 10.5 g/dL (14.0-18.0); LYMPHOCYTES # (AUTO) 1.6 K/uL (1.0-5.5); LYMPHOCYTES % (AUTO) 20.7 % (20.5-51.5); MEAN CORPUSCULAR HEMOGLOBIN 27 pg (27-31); MEAN CORPUSCULAR HGB CONC 34 % (32-36); MEAN CORPUSCULAR VOLUME 80 fL (79.0-98.0); MONOCYTES # (AUTO) 0.6 K/uL (0.0-1.0); MONOCYTES % (AUTO) 7.2 % (1.7-9.3); NEUTROPHILS # (AUTO) 4.7 K/uL (1.8-7.7); NEUTROPHILS % (AUTO) 60.1 % (40.0-70.0); PLATELET COUNT (AUTO) 465 K/uL (130-430); RED BLOOD CELL COUNT(AUTO) 3.88 MIL/uL (4.2-6.2); RED CELL DISTRIBUTION WIDTH 14.7 % (9.0-15.0); WHITE BLOOD COUNT (AUTO) 7.8 K/uL (4.8-10.8)
[2022-06-06 07:41] LABS: ALBUMIN 2.8 g/dL (3.4-4.8); CALCIUM 8.9 mg/dL (8.4-11.0); CREATININE 1.36 mg/dL (0.55-1.30); POTASSIUM 4.1 mmol/L (3.5-5.1); TOTAL BILIRUBIN 0.3 mg/dL (0.0-1.0)
[2022-06-06] MEDS: METOCLOPRAMIDE HCL 10 MG TABLET PO SCH ×2 (07:45→11:09)
[2022-06-06] MEDS: FAMOTIDINE PF 20 MG/2 ML VIAL IVP SCH (09:00)
[2022-06-06] MEDS: FENOFIBRATE 160 MG TABLET PO SCH (09:00)
[2022-06-06] MEDS: DOCUSATE SODIUM 250 MG CAPSULE PO SCH (11:00)
[2022-06-06] MEDS: OMEGA-3/DHA/EPA/FISH OIL 1 GM CAPSULE PO SCH (11:03)
[2022-06-06] MEDS: POTASSIUM CHLORIDE 20 MEQ TAB.PRT.SR PO SCH (11:03)
[2022-06-06] MEDS: SIMETHICONE 80 MG TAB.CHEW PO SCH (11:05)
[2022-06-06] MEDS: MULTIVITS,CA,MINERALS/IRON/FA 1 TABLET PO SCH (11:06)
[2022-06-06] MEDS: CHOLECALCIFEROL (VITAMIN D3) 2,000 UNIT TABLET PO SCH (11:08)
[2022-06-06 12:00] VITALS: BP_SYST 130
--- NOTE | 2022-06-06 12:11 | NUR ---
Spoke with patient Luda who stated she will picking up patient for discharge at 1400. Patient aware and present during the call.
[2022-06-06 12:26] VITALS: BP_SYST 135
--- NOTE | 2022-06-06 14:12 | NUR ---
Received patient this AM and after providing care for him over several days, patient staes he feels much better an feels ready to go home. He visited with mother this morning and spoke with physician during rounds. Patient is being discharged at this time, has no issues at this time. Patient's is here to pick him up. All questions answered. Patient escorted to private automobile by this RN in wheelchair; no signs or symptoms of discomfort or distress at this time.
== END 2022-06-06 23:20 | disposition home or self-care (01) | DRG 438 ==
LOC: SED 15:48 → STU 18:22 → SMU 05-31 17:05
PROVIDERS: ADMIT Internal Medicine; ATTEND Internal Medicine
DX: K85.90 Acute pancreatitis without necrosis or infection, unspecified (principal); E43 Unspecified severe protein-calorie malnutrition; E87.1 Hypo-osmolality and hyponatremia; R65.10 Systemic inflammatory response syndrome (SIRS) of non-infectious origin without acute organ dysfunction; Z20.822 Contact with and (suspected) exposure to COVID-19; J45.909 Unspecified asthma, uncomplicated; E83.51 Hypocalcemia; E11.65 Type 2 diabetes mellitus with hyperglycemia; E83.39 Other disorders of phosphorus metabolism; R79.89 Other specified abnormal findings of blood chemistry; E78.5 Hyperlipidemia, unspecified; E66.9 Obesity, unspecified; Z79.4 Long term (current) use of insulin; Z79.899 Other long term (current) drug therapy; Z91.14 Patient's other noncompliance with medication regimen; Z83.3 Family history of diabetes mellitus; Z68.31 Body mass index [BMI] 31.0-31.9, adult
CPT/HCPCS: 36415; 71045; 76376; 76700-TC; 80053; 80061; 81000; 82009; 82150; 82306; 82962; 83540; 83550; 83605; 83615; 83690; 83735; 84100; 85025; 86140; 87040; 93005; 94010; 96361; 96372; 96374; 96375; 96376; 99285; G0378; J0696; J1170; J1200; J1815; J1885; J2270; J2405; J2543; J3490; J7030; J7060; J7120; J8597; Q0162